=== PATIENT | male | born 1975 | race Two or more races ===

== ENCOUNTER 2022-09-16 12:26 | Inpatient (IN) | payer MEDICAID ==
[~2022-09-16] VITALS: Ht 177.8 cm; Wt 94.1 kg
[2022-09-16 13:23] LABS: Basophils # (auto) 0.1 10 ^3/uL (0-0.2); Eosinophils # (auto) 0 10 ^3/uL (0-0.8); Lymphocytes # (auto) 1.3 10 ^3/uL (0.4-5.4); Mean Corpuscular Hgb Conc. 31.8 g/dL (32.0-36.0); Monocytes # (auto) 1.6 10 ^3/uL (0-1.3)
[2022-09-16 13:30] LABS: Basophils % (auto) 0.3 % (0.0-2.0); Hematocrit 58.8 % (41.0-53.0); Hemoglobin 18.7 g/dL (13.5-17.5); Lymphocytes % (auto) 7.6 % (10.0-50.0); Mean Corpuscular Hemoglobin 30.9 pg (28.0-32.0); Mean Corpuscular Volume 97.1 fL (80.0-100.0); Monocytes % (auto) 9.3 % (0.0-12.0); Neutrophils # (auto) 14.4 10 ^3/uL (1.6-8.6); Neutrophils % (auto) 82.8 % (37.0-80.0); Nucleated Red Blood Cells % 0.1 %; Red Blood Cells 6.05 10^6/uL (4.5-5.90); Red Cell Distribution Width 14.3 % (11.8-14.3); White Blood Cell 17.4 10^3/uL (4.4-10.8)
[2022-09-16 13:41] LABS: Albumin 4.4 g/dL (3.4-5.0); Calcium 10.1 mg/dL (8.5-10.1); Potassium 4.7 mmol/L (3.5-5.1)
[2022-09-16 13:43] LABS: Total Protein 8.5 g/dL (6.4-8.2)
[2022-09-16] MEDS ORDERED: SODIUM CHLORIDE 0.9% 1,000 ML IV ONE ×2 (13:45→17:15)
[2022-09-16 14:55] LABS: Bilirubin, Total 0.6 mg/dL (0.2-1.0)
[2022-09-16 16:33] LABS: Urine Bacteria NONE SEEN /hpf (None Seen); Urine Blood 3+ /uL (Negative); Urine Mucus FEW (None Seen); Urine Specific Gravity 1.034 (1.001-1.035); Urine WBC <1 /hpf (0 - 3)
[2022-09-16] MEDS ORDERED: INSULIN LANTUS (GLARGINE) 1 /0.01ml (100units/ml) SC ONE (17:00)
[2022-09-16] MEDS ORDERED: InsuLIN REG 1unit/0.01ml Soln (100units/ml) IV ONE (17:00)
[2022-09-16] MEDS ORDERED: InsuLIN R (HUMAN) 100 UNITS in SODIUM CHL 0.9% 99 ML IV SCH (17:00)
[2022-09-16] MEDS: SODIUM CHLORIDE 0.9% 1,000 ML IV SCH ×3 (17:00→22:36)
[2022-09-16] MEDS ORDERED: DEXTROSE (50%) 50ML SYRG IV PRN (17:00)
[2022-09-16] MEDS ORDERED: NITROGLYCERIN 0.4 MG SL TAB SL PRN (17:30)
[2022-09-16] MEDS ORDERED: MORPHINE SULFATE INJ 2 MG/ml SYRG IV PRN (17:30)
[2022-09-16] MEDS ORDERED: ONDANSETRON HCL 4 MG/2 ML VIAL IV PRN (17:30)
[2022-09-16 18:02] LABS: Cholesterol 209 mg/dL (< 200)
[2022-09-16] MEDS: ACCU-CHEK COMFORT CURVE STRIP VI SCH ×4 (18:02→22:35)
[2022-09-16 18:05] LABS: HDL Cholesterol 46 mg/dL (40-59); LDL Cholesterol 135 mg/dL (< 100); Triglycerides 226 mg/dL (< 150)
[2022-09-16 18:11] LABS: Amphetamine Screen, Urine NEGATIVE (NEGATIVE); Barbiturate Scree,Urine NEGATIVE (NEGATIVE); Benzodiazephine Screen, Urine NEGATIVE (NEGATIVE); Cannabinoid Screen, Urine NEGATIVE (NEGATIVE); Cocaine Screen, Urine NEGATIVE (NEGATIVE); Opiate Scree,Urine NEGATIVE (NEGATIVE); Phencyclidine Screen, Urine NEGATIVE (NEGATIVE)
[2022-09-16] MEDS: SOD CHL 0.45% 1,000 ML IV SCH (18:38)
[2022-09-16] MEDS ORDERED: SODIUM CHLORIDE 0.9% 1,000 ML IV SCH (21:00)
[2022-09-17] MEDS: ACCU-CHEK COMFORT CURVE STRIP VI SCH ×14 (00:17→22:29)
[2022-09-17 00:44] LABS: BUN/Creatinine Ratio 18.4; Calcium 9.1 mg/dL (8.5-10.1); Potassium 3.4 mmol/L (3.5-5.1)
[2022-09-17] MEDS: SOD CHL 0.45% 1,000 ML IV SCH ×4 (01:30→21:30)
[2022-09-17] MEDS: SODIUM CHLORIDE 0.9% 1,000 ML IV SCH (05:40)
[2022-09-17 07:18] LABS: Eosinophils # (auto) 0.1 10 ^3/uL (0-0.8); Lymphocytes # (auto) 1.9 10 ^3/uL (0.4-5.4); Mean Corpuscular Hemoglobin 31.3 pg (28.0-32.0)
[2022-09-17 07:20] LABS: Basophils # (auto) 0 10 ^3/uL (0-0.2); Basophils % (auto) 0.2 % (0.0-2.0); Eosinophils % (auto) 0.7 % (0.0-7.0); Hematocrit 53.6 % (41.0-53.0); Hemoglobin 18.4 g/dL (13.5-17.5); Lymphocytes % (auto) 11.8 % (10.0-50.0); Mean Corpuscular Hgb Conc. 34.2 g/dL (32.0-36.0); Mean Corpuscular Volume 91.5 fL (80.0-100.0); Monocytes # (auto) 1.7 10 ^3/uL (0-1.3); Monocytes % (auto) 10.5 % (0.0-12.0); Neutrophils # (auto) 12.1 10 ^3/uL (1.6-8.6); Neutrophils % (auto) 76.8 % (37.0-80.0); Nucleated Red Blood Cells % 0.5 %; Red Blood Cells 5.86 10^6/uL (4.5-5.90); Red Cell Distribution Width 13.7 % (11.8-14.3); White Blood Cell 15.8 10^3/uL (4.4-10.8)
[2022-09-17 07:36] LABS: BUN/Creatinine Ratio 21.9; Calcium 9.2 mg/dL (8.5-10.1); Potassium 3.7 mmol/L (3.5-5.1)
[2022-09-17] MEDS ORDERED: cefTRIAXone 1GM/50ML D5W 50 ML IV SCH (09:00)
[2022-09-17] MEDS ORDERED: INSULIN LANTUS (GLARGINE) 1 /0.01ml (100units/ml) SC SCH ×2 (10:00→22:00)
[2022-09-17 10:41] LABS: BUN/Creatinine Ratio 21.7; Potassium 3.7 mmol/L (3.5-5.1)
[2022-09-17] MEDS ORDERED: INSULIN NPH Isophane (HUMAN) 1unit/0.01ml Susp(100units/ml) SC ONE ×2 (11:30→12:15)
[2022-09-17] MEDS ORDERED: DEXTROSE (50%) 50ML SYRG IV PRN (17:00)
[2022-09-17] MEDS: INSULIN LISPRO (HUMAN) 100 UNITS/ML ML SC SCH (17:09)
[2022-09-17] MEDS: InsuLIN REG 1unit/0.01ml Soln (100units/ml) SC SCH ×2 (17:12→22:00)
[2022-09-17 18:38] LABS: Calcium 8.8 mg/dL (8.5-10.1); Potassium 3.7 mmol/L (3.5-5.1)
[2022-09-17 18:41] LABS: BUN/Creatinine Ratio 17.6
[2022-09-17 22:00] VITALS: BP 121/89
[2022-09-18] MEDS: SOD CHL 0.45% 1,000 ML IV SCH ×4 (04:50→20:18)
[2022-09-18 05:00] VITALS: BP 113/84
[2022-09-18] MEDS: INSULIN LISPRO (HUMAN) 100 UNITS/ML ML SC SCH ×3 (06:04→17:32)
[2022-09-18] MEDS: InsuLIN REG 1unit/0.01ml Soln (100units/ml) SC SCH ×4 (06:05→22:00)
[2022-09-18] MEDS: ACCU-CHEK COMFORT CURVE STRIP VI SCH ×4 (06:05→22:10)
[2022-09-18 07:12] LABS: Anion Gap 15 (5-15); BUN/Creatinine Ratio 15.8; Blood Urea Nitrogen 67 mg/dL (7-18); Calcium 8.4 mg/dL (8.5-10.1); Carbon Dioxide 17 mmol/L (21-32); Chloride 133 mmol/L (98-107); GFR African American 20 mL/min; GFR Non-African American 16 mL/min; Glucose 224 mg/dL (74-106)
[2022-09-18 07:44] LABS: Sodium 165 mmol/L (136-145)
[2022-09-18 07:58] LABS: Hemoglobin 17.9 g/dL (13.5-17.5); Mean Corpuscular Hemoglobin 31.4 pg (28.0-32.0); Mean Corpuscular Hgb Conc. 33.7 g/dL (32.0-36.0); Mean Corpuscular Volume 93.2 fL (80.0-100.0); Red Blood Cells 5.69 10^6/uL (4.5-5.90); Red Cell Distribution Width 13.8 % (11.8-14.3); White Blood Cell 11.3 10^3/uL (4.4-10.8)
[2022-09-18 08:05] LABS: Basophils % (manual) 0 (0.0-2.0); Blast Cells 0; Metamyelocytes % 0; Myelocytes % 0; Promyelocytes % 0; Reactive Lymphocytes 0
[2022-09-18] MEDS ORDERED: D5W 5% 1,000 ML IV SCH (08:45)
[2022-09-18 09:00] VITALS: BP 131/92
[2022-09-18 10:32] LABS: Band Neutrophils % (manual) 14; Eosinophils % (manual) 1 (0-7); Lymphocytes % (manual) 15 (10.0-50.0); Monocytes % (manual) 7 (0-12)
[2022-09-18 13:00] VITALS: BP 127/90
[2022-09-18] MEDS: SODIUM BICARBONATE 650 MG TAB PO SCH ×2 (13:49→22:08)
[2022-09-18 14:37] LABS: INR 1.33 (0.9-1.15)
[2022-09-18 15:02] LABS: Albumin 2.8 g/dL (3.4-5.0); Calcium 7.7 mg/dL (8.5-10.1); Potassium 3.6 mmol/L (3.5-5.1)
[2022-09-18 15:06] LABS: BUN/Creatinine Ratio 17.5; Bilirubin, Direct 0.2 mg/dL (0-0.2); Bilirubin, Total 0.6 mg/dL (0.2-1.0); Phosphorus 4.5 mg/dL (2.5-4.90); Total Protein 5.9 g/dL (6.4-8.2)
[2022-09-18] MEDS ORDERED: INSULIN LISPRO (HUMAN) 100 UNITS/ML ML SC ONE (15:45)
[2022-09-18 17:00] VITALS: BP 125/83
[2022-09-18 20:00] VITALS: BP 116/74
[2022-09-18 22:00] VITALS: BP 116/74
[2022-09-18] MEDS ORDERED: INSULIN LANTUS (GLARGINE) 1 /0.01ml (100units/ml) SC SCH (22:00)
[2022-09-18 22:24] LABS: BUN/Creatinine Ratio 18.5; Calcium 7.7 mg/dL (8.5-10.1); Potassium 3.3 mmol/L (3.5-5.1)
[2022-09-19] MEDS: SOD CHL 0.45% 1,000 ML IV SCH (04:50)
[2022-09-19 05:00] VITALS: BP 122/73
[2022-09-19] MEDS: SODIUM BICARBONATE 650 MG TAB PO SCH ×3 (05:56→21:58)
[2022-09-19] MEDS: ACCU-CHEK COMFORT CURVE STRIP VI SCH ×4 (06:17→21:58)
[2022-09-19] MEDS: INSULIN LISPRO (HUMAN) 100 UNITS/ML ML SC SCH ×3 (06:21→17:48)
[2022-09-19] MEDS: InsuLIN REG 1unit/0.01ml Soln (100units/ml) SC SCH ×4 (06:22→22:03)
[2022-09-19 07:04] LABS: BUN/Creatinine Ratio 18.5; Calcium 7.5 mg/dL (8.5-10.1)
[2022-09-19 08:08] LABS: Basophils # (auto) 0 10 ^3/uL (0-0.2); Basophils % (auto) 0.3 % (0.0-2.0); Eosinophils # (auto) 0.3 10 ^3/uL (0-0.8); Eosinophils % (auto) 3.3 % (0.0-7.0); Hematocrit 44.6 % (41.0-53.0); Hemoglobin 15.1 g/dL (13.5-17.5); Lymphocytes # (auto) 1.7 10 ^3/uL (0.4-5.4); Lymphocytes % (auto) 20.7 % (10.0-50.0); Mean Corpuscular Hemoglobin 31.3 pg (28.0-32.0); Mean Corpuscular Hgb Conc. 33.9 g/dL (32.0-36.0); Mean Corpuscular Volume 92.1 fL (80.0-100.0); Monocytes # (auto) 0.7 10 ^3/uL (0-1.3); Monocytes % (auto) 8.5 % (0.0-12.0); Neutrophils # (auto) 5.5 10 ^3/uL (1.6-8.6); Neutrophils % (auto) 67.2 % (37.0-80.0); Nucleated Red Blood Cells % 0.2 %; Red Blood Cells 4.84 10^6/uL (4.5-5.90); Red Cell Distribution Width 13.3 % (11.8-14.3); White Blood Cell 8.2 10^3/uL (4.4-10.8)
[2022-09-19 09:29] VITALS: BP 127/80
[2022-09-19] MEDS ORDERED: INSULIN LANTUS (GLARGINE) 1 /0.01ml (100units/ml) SC ONE (11:45)
[2022-09-19] MEDS: SODIUM CHLORIDE 0.9% 1,000 ML IV SCH ×2 (12:18→17:46)
[2022-09-19 13:00] VITALS: BP 134/76
[2022-09-19 14:38] LABS: BUN/Creatinine Ratio 18.3; Calcium 7.4 mg/dL (8.5-10.1); Potassium 3.5 mmol/L (3.5-5.1)
[2022-09-19] MEDS ORDERED: RAMIPRIL 10 MG CAP PO ONE (15:15)
[2022-09-19] MEDS ORDERED: HCTZ 25 MG TAB PO ONE (15:15)
[2022-09-19 17:11] VITALS: BP 125/80
[2022-09-19 21:30] VITALS: BP 111/70
[2022-09-19] MEDS ORDERED: CARVEDILOL 12.5 MG TAB PO SCH (22:00)
[2022-09-19] MEDS: INSULIN LANTUS (GLARGINE) 1 /0.01ml (100units/ml) SC SCH (22:04)
[2022-09-20 05:00] VITALS: BP 104/66
[2022-09-20] MEDS: SODIUM BICARBONATE 650 MG TAB PO SCH ×4 (06:24→22:51)
[2022-09-20] MEDS: INSULIN LISPRO (HUMAN) 100 UNITS/ML ML SC SCH ×3 (06:25→17:00)
[2022-09-20] MEDS: ACCU-CHEK COMFORT CURVE STRIP VI SCH ×4 (06:26→22:51)
[2022-09-20] MEDS: INSULIN LANTUS (GLARGINE) 1 /0.01ml (100units/ml) SC SCH ×2 (06:27→22:54)
[2022-09-20] MEDS: InsuLIN REG 1unit/0.01ml Soln (100units/ml) SC SCH ×4 (06:28→22:53)
[2022-09-20] MEDS: SODIUM CHLORIDE 0.9% 1,000 ML IV SCH ×2 (06:33→09:30)
[2022-09-20 06:38] LABS: Basophils # (auto) 0 10 ^3/uL (0-0.2); Eosinophils # (auto) 0.2 10 ^3/uL (0-0.8); Lymphocytes # (auto) 1.5 10 ^3/uL (0.4-5.4); Mean Corpuscular Hgb Conc. 34.6 g/dL (32.0-36.0); Monocytes # (auto) 0.8 10 ^3/uL (0-1.3)
[2022-09-20 06:40] LABS: Basophils % (auto) 0.3 % (0.0-2.0); Eosinophils % (auto) 2.6 % (0.0-7.0); Hematocrit 38.3 % (41.0-53.0); Hemoglobin 13.2 g/dL (13.5-17.5); Lymphocytes % (auto) 21.5 % (10.0-50.0); Mean Corpuscular Hemoglobin 31.2 pg (28.0-32.0); Mean Corpuscular Volume 90.2 fL (80.0-100.0); Monocytes % (auto) 11.8 % (0.0-12.0); Neutrophils # (auto) 4.5 10 ^3/uL (1.6-8.6); Neutrophils % (auto) 63.8 % (37.0-80.0); Red Blood Cells 4.24 10^6/uL (4.5-5.90); Red Cell Distribution Width 12.9 % (11.8-14.3)
[2022-09-20 06:58] LABS: Calcium 7.8 mg/dL (8.5-10.1); Uric Acid 12.4 mg/dL (3.5-7.2)
[2022-09-20 09:00] VITALS: BP 129/76
[2022-09-20] MEDS ORDERED: RAMIPRIL 10 MG CAP PO SCH (10:00)
[2022-09-20] MEDS ORDERED: HCTZ 25 MG TAB PO SCH (10:00)
[2022-09-20 11:25] LABS: Urine Bacteria FEW /hpf (None Seen); Urine Blood 3+ /uL (Negative); Urine Specific Gravity 1.018 (1.001-1.035); Urine WBC 4 /hpf (0 - 3)
[2022-09-20 12:32] VITALS: BP 116/67
[2022-09-20 13:19] LABS: Hepatitis A Ab IgM Negative; Hepatitis B Core IgM Negative; Hepatitis C Antibody Negative (Negative)
[2022-09-20 17:38] VITALS: BP 122/68
[2022-09-20 21:28] VITALS: BP 124/73
[2022-09-21] MEDS ORDERED: ACCU-CHEK COMFORT CURVE STRIP VI ONE (02:00)
[2022-09-21 05:02] VITALS: BP 122/75
[2022-09-21 05:30] LABS: Basophils # (auto) 0 10 ^3/uL (0-0.2); Basophils % (auto) 0.4 % (0.0-2.0); Eosinophils # (auto) 0.2 10 ^3/uL (0-0.8); Hematocrit 38.8 % (41.0-53.0)
[2022-09-21 05:33] LABS: Hemoglobin 13.4 g/dL (13.5-17.5); Lymphocytes # (auto) 1.6 10 ^3/uL (0.4-5.4); Lymphocytes % (auto) 23.8 % (10.0-50.0); Mean Corpuscular Hemoglobin 31.9 pg (28.0-32.0); Mean Corpuscular Hgb Conc. 34.5 g/dL (32.0-36.0); Mean Corpuscular Volume 92.4 fL (80.0-100.0); Neutrophils # (auto) 3.8 10 ^3/uL (1.6-8.6); Neutrophils % (auto) 57.8 % (37.0-80.0); Nucleated Red Blood Cells % 0.1 %; Red Blood Cells 4.19 10^6/uL (4.5-5.90); Red Cell Distribution Width 13.1 % (11.8-14.3); White Blood Cell 6.5 10^3/uL (4.4-10.8)
[2022-09-21] MEDS: SODIUM BICARBONATE 650 MG TAB PO SCH ×4 (05:54→23:07)
[2022-09-21] MEDS: SODIUM CHLORIDE 0.9% 1,000 ML IV SCH ×2 (05:54→11:00)
[2022-09-21] MEDS: ACCU-CHEK COMFORT CURVE STRIP VI SCH ×4 (05:55→23:08)
[2022-09-21 06:00] LABS: BUN/Creatinine Ratio 16.4; Calcium 7.5 mg/dL (8.5-10.1); Potassium 3.9 mmol/L (3.5-5.1)
[2022-09-21] MEDS: INSULIN LISPRO (HUMAN) 100 UNITS/ML ML SC SCH ×3 (06:37→17:30)
[2022-09-21] MEDS: InsuLIN REG 1unit/0.01ml Soln (100units/ml) SC SCH ×4 (06:38→23:10)
[2022-09-21] MEDS: INSULIN LANTUS (GLARGINE) 1 /0.01ml (100units/ml) SC SCH ×2 (06:39→23:09)
[2022-09-21 09:00] VITALS: BP 139/78
[2022-09-21 13:00] VITALS: BP 149/76
[2022-09-21] MEDS ORDERED: fentaNYL CITRATE 100 MCG/2 ML VL ONE (14:03)
[2022-09-21] MEDS ORDERED: MIDAZOLAM HCL 2MG/2ML 2ml VIAL (1mg/ml) ONE (14:03)
[2022-09-21] MEDS ORDERED: LIDOCAINE 2%HCL (LOCAL ANESTH.) INJ 10ml MDV ONE (14:04)
[2022-09-21] MEDS ORDERED: HEPARIN SODIUM (PORCINE) 5000 UNITS/ML 1ML VIAL ONE (14:18)
[2022-09-21 17:00] VITALS: BP 158/80
[2022-09-21 22:00] VITALS: BP 146/79
[2022-09-22] MEDS: SODIUM BICARBONATE 650 MG TAB PO SCH ×4 (06:20→22:43)
[2022-09-22] MEDS: INSULIN LANTUS (GLARGINE) 1 /0.01ml (100units/ml) SC SCH ×2 (06:27→22:00)
[2022-09-22] MEDS: InsuLIN REG 1unit/0.01ml Soln (100units/ml) SC SCH (06:32)
[2022-09-22] MEDS: INSULIN LISPRO (HUMAN) 100 UNITS/ML ML SC SCH ×4 (06:32→19:06)
[2022-09-22] MEDS: ACCU-CHEK COMFORT CURVE STRIP VI SCH ×4 (06:35→22:44)
[2022-09-22 07:45] LABS: Calcium 7.8 mg/dL (8.5-10.1); Potassium 3.8 mmol/L (3.5-5.1)
[2022-09-22] MEDS ORDERED: SODIUM CHL 0.9% 1000 ML BAG XX ONE (07:45)
[2022-09-22] MEDS: SODIUM CHLORIDE 0.9% 1,000 ML IV SCH (07:46)
[2022-09-22 07:47] LABS: BUN/Creatinine Ratio 13.4
[2022-09-22 07:56] LABS: Basophils # (auto) 0 10 ^3/uL (0-0.2); Eosinophils # (auto) 0.2 10 ^3/uL (0-0.8); Hemoglobin 13.4 g/dL (13.5-17.5); Lymphocytes # (auto) 1.3 10 ^3/uL (0.4-5.4); Monocytes # (auto) 1.2 10 ^3/uL (0-1.3); Neutrophils # (auto) 3.9 10 ^3/uL (1.6-8.6); Nucleated Red Blood Cells % 0.1 %
[2022-09-22 07:59] LABS: Basophils % (auto) 0.4 % (0.0-2.0); Eosinophils % (auto) 3.8 % (0.0-7.0); Hematocrit 38.3 % (41.0-53.0); Lymphocytes % (auto) 19.3 % (10.0-50.0); Mean Corpuscular Hemoglobin 31.6 pg (28.0-32.0); Mean Corpuscular Volume 90.3 fL (80.0-100.0); Monocytes % (auto) 17.6 % (0.0-12.0); Neutrophils % (auto) 58.9 % (37.0-80.0); Red Blood Cells 4.24 10^6/uL (4.5-5.90); Red Cell Distribution Width 12.8 % (11.8-14.3); White Blood Cell 6.6 10^3/uL (4.4-10.8)
[2022-09-22 08:00] VITALS: BP 132/74
[2022-09-22 09:00] VITALS: BP 132/74
[2022-09-22] MEDS: ACETAMINOPHEN 500 MG TAB PO PRN (11:25)
[2022-09-22 13:00] VITALS: BP 140/77
[2022-09-22 17:00] VITALS: BP 140/80
[2022-09-22 21:55] VITALS: BP 143/60
[2022-09-23 05:00] VITALS: BP 129/74
[2022-09-23] MEDS: INSULIN LANTUS (GLARGINE) 1 /0.01ml (100units/ml) SC SCH ×2 (06:20→22:35)
[2022-09-23] MEDS: SODIUM BICARBONATE 650 MG TAB PO SCH ×4 (06:20→22:36)
[2022-09-23] MEDS: INSULIN LISPRO (HUMAN) 100 UNITS/ML ML SC SCH ×3 (06:20→17:21)
[2022-09-23 06:52] LABS: Hematocrit 37.2 % (41.0-53.0); Mean Corpuscular Hemoglobin 31.4 pg (28.0-32.0); Mean Corpuscular Hgb Conc. 34.9 g/dL (32.0-36.0); Mean Corpuscular Volume 89.9 fL (80.0-100.0); Red Blood Cells 4.14 10^6/uL (4.5-5.90); Red Cell Distribution Width 12.6 % (11.8-14.3); White Blood Cell 6.1 10^3/uL (4.4-10.8)
[2022-09-23 06:55] LABS: Basophils % (manual) 0 (0.0-2.0); Blast Cells 0; Metamyelocytes % 0; Myelocytes % 0; Promyelocytes % 0; Reactive Lymphocytes 0
[2022-09-23 07:03] LABS: BUN/Creatinine Ratio 12.5; Calcium 7.7 mg/dL (8.5-10.1); Potassium 3.6 mmol/L (3.5-5.1)
[2022-09-23] MEDS: ACCU-CHEK COMFORT CURVE STRIP VI SCH ×4 (07:20→22:36)
[2022-09-23 08:13] LABS: Band Neutrophils % (manual) 3; Lymphocytes % (manual) 23 (10.0-50.0)
[2022-09-23 08:14] LABS: Eosinophils % (manual) 4 (0-7); Monocytes % (manual) 14 (0-12)
[2022-09-23 09:00] VITALS: BP 124/71
[2022-09-23 13:00] VITALS: BP 130/74
[2022-09-23 17:00] VITALS: BP 148/85
[2022-09-23] MEDS: ACETAMINOPHEN 500 MG TAB PO PRN (19:57)
[2022-09-23 21:51] VITALS: BP 133/80
[2022-09-24 05:00] VITALS: BP 132/76
[2022-09-24] MEDS: SODIUM BICARBONATE 650 MG TAB PO SCH ×4 (06:47→22:44)
[2022-09-24] MEDS: INSULIN LISPRO (HUMAN) 100 UNITS/ML ML SC SCH ×3 (06:54→17:05)
[2022-09-24] MEDS: INSULIN LANTUS (GLARGINE) 1 /0.01ml (100units/ml) SC SCH ×2 (06:55→22:47)
[2022-09-24] MEDS: ACCU-CHEK COMFORT CURVE STRIP VI SCH ×4 (06:55→22:45)
[2022-09-24 08:15] VITALS: BP 138/73
[2022-09-24] MEDS ORDERED: INSULIN LANTUS (GLARGINE) 1 /0.01ml (100units/ml) SC SCH (08:30)
[2022-09-24] MEDS ORDERED: SODIUM CHL 0.9% 1000 ML BAG XX ONE (11:30)
[2022-09-24 12:40] VITALS: BP 132/75
[2022-09-24 16:20] VITALS: BP 136/76
[2022-09-24 22:00] VITALS: BP 145/84
[2022-09-25 05:00] VITALS: BP 132/76
[2022-09-25] MEDS: SODIUM BICARBONATE 650 MG TAB PO SCH ×2 (06:27→11:42)
[2022-09-25] MEDS: ACCU-CHEK COMFORT CURVE STRIP VI SCH ×4 (06:28→21:53)
[2022-09-25] MEDS: INSULIN LISPRO (HUMAN) 100 UNITS/ML ML SC SCH ×3 (06:28→16:56)
[2022-09-25 08:50] VITALS: BP 129/79
[2022-09-25 12:44] VITALS: BP 141/77
[2022-09-25 15:40] LABS: BUN/Creatinine Ratio 7.6; Calcium 8.1 mg/dL (8.5-10.1)
[2022-09-25 15:45] LABS: Potassium 2.8 mmol/L (3.5-5.1)
[2022-09-25] MEDS ORDERED: POTASSIUM EFFERVESENT TAB 25 MEQ PO ONE ×2 (16:00→20:00)
[2022-09-25 16:57] VITALS: BP 138/78
[2022-09-25] MEDS: INSULIN LANTUS (GLARGINE) 1 /0.01ml (100units/ml) SC SCH (21:55)
[2022-09-25 22:00] VITALS: BP 179/72
[2022-09-26 05:00] VITALS: BP 136/78
[2022-09-26 06:26] LABS: Hematocrit 35.5 % (41.0-53.0); Hemoglobin 12.6 g/dL (13.5-17.5); Mean Corpuscular Hemoglobin 31.4 pg (28.0-32.0); Mean Corpuscular Hgb Conc. 35.6 g/dL (32.0-36.0); Mean Corpuscular Volume 88.2 fL (80.0-100.0); Red Blood Cells 4.03 10^6/uL (4.5-5.90); Red Cell Distribution Width 12.9 % (11.8-14.3); White Blood Cell 9.5 10^3/uL (4.4-10.8)
[2022-09-26] MEDS: ACCU-CHEK COMFORT CURVE STRIP VI SCH ×4 (06:37→21:33)
[2022-09-26] MEDS: INSULIN LISPRO (HUMAN) 100 UNITS/ML ML SC SCH ×3 (06:37→17:00)
[2022-09-26 06:38] LABS: Albumin 2.3 g/dL (3.4-5.0); Potassium 3.5 mmol/L (3.5-5.1)
[2022-09-26 06:42] LABS: BUN/Creatinine Ratio 7.6; Bilirubin, Total 0.4 mg/dL (0.2-1.0); Phosphorus 7.3 mg/dL (2.5-4.90); Total Protein 5.4 g/dL (6.4-8.2)
[2022-09-26] MEDS ORDERED: SODIUM CHL 0.9% 1000 ML BAG XX ONE (07:00)
[2022-09-26 07:13] LABS: Basophils % (manual) 0 (0.0-2.0); Blast Cells 0; Metamyelocytes % 0; Promyelocytes % 0; Reactive Lymphocytes 0
[2022-09-26 07:39] LABS: Band Neutrophils % (manual) 20; Eosinophils % (manual) 3 (0-7); Lymphocytes % (manual) 21 (10.0-50.0); Monocytes % (manual) 8 (0-12); Myelocytes % 3
[2022-09-26 08:58] VITALS: BP 148/74
[2022-09-26] MEDS: SEVELAMER 800 MG TAB PO SCH ×2 (11:57→18:24)
[2022-09-26 12:44] VITALS: BP 147/75
[2022-09-26 14:36] LABS: Bilirubin, Direct 0.1 mg/dL (0-0.2); Bilirubin, Total 1.3 mg/dL (0.2-1.0); INR 1.08 (0.9-1.15)
[2022-09-26 16:46] VITALS: BP 135/80
[2022-09-26] MEDS: INSULIN LANTUS (GLARGINE) 1 /0.01ml (100units/ml) SC SCH (21:34)
[2022-09-26 22:00] VITALS: BP 137/85
[2022-09-27 05:00] VITALS: BP 129/80
[2022-09-27] MEDS: ACCU-CHEK COMFORT CURVE STRIP VI SCH ×4 (06:54→22:01)
[2022-09-27] MEDS: INSULIN LISPRO (HUMAN) 100 UNITS/ML ML SC SCH ×3 (06:55→17:33)
[2022-09-27] MEDS: SEVELAMER 800 MG TAB PO SCH ×2 (08:00→17:33)
[2022-09-27 09:03] VITALS: BP 159/62
[2022-09-27] MEDS ORDERED: ONDANSETRON HCL 4 MG/2 ML VIAL IV PRN (09:30)
[2022-09-27 13:00] VITALS: BP 132/74
[2022-09-27 22:00] VITALS: BP 140/86
[2022-09-27] MEDS: INSULIN LANTUS (GLARGINE) 1 /0.01ml (100units/ml) SC SCH (22:00)
[2022-09-28 05:00] VITALS: BP 133/79
[2022-09-28 06:25] LABS: Basophils # (auto) 0 10 ^3/uL (0-0.2); Basophils % (auto) 0.5 % (0.0-2.0); Eosinophils # (auto) 0.3 10 ^3/uL (0-0.8); Eosinophils % (auto) 3.6 % (0.0-7.0); Hematocrit 34.9 % (41.0-53.0); Hemoglobin 12.4 g/dL (13.5-17.5); Lymphocytes # (auto) 1.5 10 ^3/uL (0.4-5.4); Lymphocytes % (auto) 16.8 % (10.0-50.0); Mean Corpuscular Hemoglobin 31.8 pg (28.0-32.0); Mean Corpuscular Hgb Conc. 35.6 g/dL (32.0-36.0); Mean Corpuscular Volume 89.3 fL (80.0-100.0); Monocytes # (auto) 0.7 10 ^3/uL (0-1.3); Monocytes % (auto) 7.9 % (0.0-12.0); Neutrophils # (auto) 6.3 10 ^3/uL (1.6-8.6); Neutrophils % (auto) 71.2 % (37.0-80.0); Nucleated Red Blood Cells % 0.1 %; Red Blood Cells 3.91 10^6/uL (4.5-5.90); Red Cell Distribution Width 12.9 % (11.8-14.3); White Blood Cell 8.9 10^3/uL (4.4-10.8)
[2022-09-28] MEDS: INSULIN LISPRO (HUMAN) 100 UNITS/ML ML SC SCH ×3 (06:27→17:45)
[2022-09-28] MEDS: ACCU-CHEK COMFORT CURVE STRIP VI SCH ×4 (06:27→21:23)
[2022-09-28 06:47] LABS: BUN/Creatinine Ratio 5.5; Calcium 8.5 mg/dL (8.5-10.1); Potassium 3.9 mmol/L (3.5-5.1)
[2022-09-28] MEDS ORDERED: SODIUM CHL 0.9% 1000 ML BAG XX ONE (07:00)
[2022-09-28] MEDS: SEVELAMER 800 MG TAB PO SCH ×3 (08:00→18:17)
[2022-09-28 09:14] VITALS: BP 126/76
[2022-09-28 12:50] VITALS: BP 141/84
[2022-09-28] MEDS ORDERED: FUROSEMIDE 100 MG/10ML VIAL IV ONE (13:00)
[2022-09-28 17:14] VITALS: BP 136/83
[2022-09-28] MEDS: INSULIN LANTUS (GLARGINE) 1 /0.01ml (100units/ml) SC SCH (21:23)
[2022-09-28 22:00] VITALS: BP 132/78
[2022-09-28] MEDS ORDERED: diphenhdrAMINE HCL 50 MG/1 ML VL IV PRN (22:45)
[2022-09-29 05:00] VITALS: BP 142/76
[2022-09-29 06:04] LABS: Calcium 8.6 mg/dL (8.5-10.1)
[2022-09-29 06:06] LABS: BUN/Creatinine Ratio 6.7
[2022-09-29] MEDS: ACCU-CHEK COMFORT CURVE STRIP VI SCH ×4 (06:17→22:35)
[2022-09-29] MEDS: INSULIN LISPRO (HUMAN) 100 UNITS/ML ML SC SCH ×3 (06:17→17:23)
[2022-09-29 08:00] VITALS: BP 141/84
[2022-09-29] MEDS: SEVELAMER 800 MG TAB PO SCH ×3 (08:00→18:29)
[2022-09-29 09:25] VITALS: BP 131/79
[2022-09-29 13:00] VITALS: BP 138/79
[2022-09-29 17:58] VITALS: BP 137/86
[2022-09-29] MEDS: INSULIN LANTUS (GLARGINE) 1 /0.01ml (100units/ml) SC SCH (22:37)
[2022-09-29 22:49] VITALS: BP 133/70
[2022-09-30 05:30] VITALS: BP 127/79
[2022-09-30] MEDS: ACCU-CHEK COMFORT CURVE STRIP VI SCH ×4 (06:51→21:06)
[2022-09-30] MEDS: INSULIN LISPRO (HUMAN) 100 UNITS/ML ML SC SCH ×4 (06:53→16:59)
[2022-09-30] MEDS ORDERED: SODIUM CHL 0.9% 1000 ML BAG XX ONE (07:00)
[2022-09-30 07:30] VITALS: BP 132/83
[2022-09-30 07:33] LABS: BUN/Creatinine Ratio 7.7; Calcium 8.5 mg/dL (8.5-10.1); Phosphorus 8.2 mg/dL (2.5-4.90); Potassium 3.5 mmol/L (3.5-5.1)
[2022-09-30] MEDS: SEVELAMER 800 MG TAB PO SCH ×3 (08:02→17:00)
[2022-09-30 09:00] VITALS: BP 132/83
[2022-09-30] MEDS: INSULIN LANTUS (GLARGINE) 1 /0.01ml (100units/ml) SC SCH ×2 (13:15→21:09)
[2022-09-30 13:19] VITALS: BP 119/84
[2022-09-30 17:00] VITALS: BP 105/72
[2022-09-30] MEDS ORDERED: EPOETIN ALFA-EPBX 10,000 UNIT/1ML VIAL SC ONE (21:00)
[2022-09-30 22:00] VITALS: BP 141/81
[2022-10-01 05:30] VITALS: BP 100/64
[2022-10-01] MEDS: INSULIN LISPRO (HUMAN) 100 UNITS/ML ML SC SCH ×3 (06:54→17:31)
[2022-10-01] MEDS: ACCU-CHEK COMFORT CURVE STRIP VI SCH ×4 (06:54→21:36)
[2022-10-01] MEDS: SEVELAMER 800 MG TAB PO SCH ×3 (07:41→17:27)
[2022-10-01] MEDS ORDERED: MIDAZOLAM HCL 2MG/2ML 2ml VIAL (1mg/ml) IV ONE (09:00)
[2022-10-01] MEDS ORDERED: fentaNYL CITRATE 100 MCG/2 ML VL IV ONE (09:00)
[2022-10-01 13:00] VITALS: BP 125/92
[2022-10-01 17:00] VITALS: BP 133/76
[2022-10-01] MEDS: INSULIN LANTUS (GLARGINE) 1 /0.01ml (100units/ml) SC SCH (21:36)
[2022-10-01 22:00] VITALS: BP 112/69
[2022-10-02 05:00] VITALS: BP 119/66
[2022-10-02] MEDS: INSULIN LISPRO (HUMAN) 100 UNITS/ML ML SC SCH ×3 (06:10→18:37)
[2022-10-02] MEDS: ACCU-CHEK COMFORT CURVE STRIP VI SCH ×4 (06:11→21:19)
[2022-10-02] MEDS ORDERED: SODIUM CHL 0.9% 1000 ML BAG XX ONE (07:00)
[2022-10-02 08:18] LABS: BUN/Creatinine Ratio 8.9; Calcium 9.4 mg/dL (8.5-10.1); Potassium 3.7 mmol/L (3.5-5.1)
[2022-10-02 09:00] VITALS: BP 123/81
[2022-10-02] MEDS: SEVELAMER 800 MG TAB PO SCH ×3 (09:14→18:37)
[2022-10-02 13:00] VITALS: BP 129/68
[2022-10-02 17:03] VITALS: BP 136/90
[2022-10-02 20:27] LABS: Basophils # (auto) 0.2 10 ^3/uL (0-0.2); Basophils % (auto) 1.8 % (0.0-2.0); Eosinophils # (auto) 0.3 10 ^3/uL (0-0.8); Eosinophils % (auto) 2.9 % (0.0-7.0); Hematocrit 38.8 % (41.0-53.0); Hemoglobin 13.2 g/dL (13.5-17.5); Lymphocytes # (auto) 2.3 10 ^3/uL (0.4-5.4); Lymphocytes % (auto) 26.3 % (10.0-50.0); Mean Corpuscular Hemoglobin 30.7 pg (28.0-32.0); Mean Corpuscular Hgb Conc. 33.9 g/dL (32.0-36.0); Mean Corpuscular Volume 90.5 fL (80.0-100.0); Monocytes # (auto) 0.6 10 ^3/uL (0-1.3); Monocytes % (auto) 7.2 % (0.0-12.0); Neutrophils # (auto) 5.3 10 ^3/uL (1.6-8.6); Neutrophils % (auto) 61.8 % (37.0-80.0); Red Blood Cells 4.29 10^6/uL (4.5-5.90); Red Cell Distribution Width 12.8 % (11.8-14.3); White Blood Cell 8.6 10^3/uL (4.4-10.8)
[2022-10-02] MEDS ORDERED: EPOETIN ALFA-EPBX 10,000 UNIT/1ML VIAL SC ONE (21:00)
[2022-10-02] MEDS: INSULIN LANTUS (GLARGINE) 1 /0.01ml (100units/ml) SC SCH (21:19)
[2022-10-02 22:00] VITALS: BP 117/80
[2022-10-03 05:00] VITALS: BP 126/78
[2022-10-03] MEDS: ACCU-CHEK COMFORT CURVE STRIP VI SCH ×4 (06:08→21:42)
[2022-10-03] MEDS: INSULIN LISPRO (HUMAN) 100 UNITS/ML ML SC SCH ×4 (06:11→18:34)
[2022-10-03] MEDS: SEVELAMER 800 MG TAB PO SCH ×3 (08:00→18:31)
[2022-10-03 09:00] VITALS: BP 116/74
[2022-10-03 10:59] LABS: Calcium 8.8 mg/dL (8.5-10.1); Potassium 3.9 mmol/L (3.5-5.1)
[2022-10-03 11:05] LABS: Albumin 3.1 g/dL (3.4-5.0); BUN/Creatinine Ratio 8.7; Bilirubin, Total 0.7 mg/dL (0.2-1.0); Total Protein 7.7 g/dL (6.4-8.2)
[2022-10-03 13:13] VITALS: BP 104/54
[2022-10-03 17:24] VITALS: BP 130/73
[2022-10-03] MEDS: INSULIN LANTUS (GLARGINE) 1 /0.01ml (100units/ml) SC SCH (21:55)
[2022-10-03 22:00] VITALS: BP 133/77
[2022-10-04 05:00] VITALS: BP 115/79
[2022-10-04] MEDS: INSULIN LISPRO (HUMAN) 100 UNITS/ML ML SC SCH (06:44)
[2022-10-04] MEDS: ACCU-CHEK COMFORT CURVE STRIP VI SCH ×4 (06:45→21:24)
[2022-10-04 07:08] LABS: BUN/Creatinine Ratio 10.2; Potassium 3.6 mmol/L (3.5-5.1)
[2022-10-04] MEDS: SEVELAMER 800 MG TAB PO SCH ×3 (08:20→18:17)
[2022-10-04 09:00] VITALS: BP 130/79
[2022-10-04] MEDS ORDERED: INSULIN LISPRO (HUMAN) 100 UNITS/ML ML SC SCH (11:30)
[2022-10-04 12:30] VITALS: BP 118/83
[2022-10-04 15:04] LABS: BUN/Creatinine Ratio 9.9; Potassium 3.3 mmol/L (3.5-5.1)
[2022-10-04 17:30] VITALS: BP 101/65
[2022-10-04 21:34] VITALS: BP 132/84
[2022-10-04] MEDS ORDERED: glipiZIDE 5 MG TAB PO SCH (22:00)
[2022-10-05 04:47] VITALS: BP 112/70
[2022-10-05 05:43] LABS: BUN/Creatinine Ratio 11.1; Calcium 8.9 mg/dL (8.5-10.1); Phosphorus 3.5 mg/dL (2.5-4.90); Potassium 3.4 mmol/L (3.5-5.1)
[2022-10-05] MEDS: ACCU-CHEK COMFORT CURVE STRIP VI SCH ×2 (07:00→11:56)
[2022-10-05] MEDS: SEVELAMER 800 MG TAB PO SCH ×2 (08:22→12:32)
[2022-10-05 11:08] VITALS: BP 121/86
[2022-10-05 12:56] VITALS: BP 118/83
[2022-10-05] MEDS ORDERED: GLIP5TAB12 PO ×2 (15:01→15:15)
== END 2022-10-05 16:40 | disposition home or self-care (01) | DRG 420 ==
LOC: ER 12:26 → OVERFLOW 17:29 → TELE-CENTR 09-17 20:34 → CENTRAL 09-17 20:54
PROVIDERS: ADMIT Registered Nurse; ATTEND Student in an Organized Health Care Education/Training Program
PROC: 02HV33Z Insertion of Infusion Device into Superior Vena Cava, Percutaneous Approach (ICD-10-PCS; 2022-09-21)
PROC: B548ZZA Ultrasonography of Superior Vena Cava, Guidance (ICD-10-PCS; 2022-09-21)
PROC: B5181ZA Fluoroscopy of Superior Vena Cava using Low Osmolar Contrast, Guidance (ICD-10-PCS; 2022-09-21)
PROC: 5A1D70Z Performance of Urinary Filtration, Intermittent, Less than 6 Hours Per Day (ICD-10-PCS; principal; 2022-09-22)
PROC: 5A1D70Z Performance of Urinary Filtration, Intermittent, Less than 6 Hours Per Day (ICD-10-PCS; 2022-09-24)
PROC: 5A1D70Z Performance of Urinary Filtration, Intermittent, Less than 6 Hours Per Day (ICD-10-PCS; 2022-09-26)
PROC: 5A1D70Z Performance of Urinary Filtration, Intermittent, Less than 6 Hours Per Day (ICD-10-PCS; 2022-10-02)
DX: E11.10 Type 2 diabetes mellitus with ketoacidosis without coma (principal); N17.0 Acute kidney failure with tubular necrosis; G93.41 Metabolic encephalopathy; E87.0 Hyperosmolality and hypernatremia; M62.82 Rhabdomyolysis; D69.6 Thrombocytopenia, unspecified; E83.39 Other disorders of phosphorus metabolism; N39.0 Urinary tract infection, site not specified; E07.81 Sick-euthyroid syndrome; E86.0 Dehydration; E11.22 Type 2 diabetes mellitus with diabetic chronic kidney disease; I12.9 Hypertensive chronic kidney disease with stage 1 through stage 4 chronic kidney disease, or unspecified chronic kidney disease; K76.0 Fatty (change of) liver, not elsewhere classified; N18.32 Chronic kidney disease, stage 3b; Z20.822 Contact with and (suspected) exposure to COVID-19; Z59.7 Insufficient social insurance and welfare support; Z99.2 Dependence on renal dialysis; Z79.4 Long term (current) use of insulin
CPT/HCPCS: 36415; 36600; 71045; 76705; 76775; 76942; 77001; 80048; 80053; 80061; 80074; 80076; 80307; 81001; 82010; 82247; 82248; 82306; 82550; 82570; 82607; 82805; 82962; 82977; 83010; 83036; 83615; 83735; 83930; 83970; 84100; 84156; 84300; 84443; 84484; 84550; 85007; 85025; 85027; 85610; 86703; 87040; 87081; 87086; 87426; 90935; 96361; 96374; 99152; 99291; G0378; J0696; J1642; J1815; J2001; J2250; J2405